=== PATIENT | male | born 1955 | race American Indian/Alaskan Native ===

== ENCOUNTER 2016-11-29 16:45 | Emergency (ER) | payer BC ==
[2016-11-29 17:00] VITALS: BP 123/93
--- NOTE | 2016-11-29 17:20 | Event Note ---
Date: 11/29/16 Patient sent to the ER for evaluation of chest pressure. Patient complains of a sensation of chest fullness in his chest cavity since Tuesday. He denies vomiting, diaphoresis, shortness of breath. His EKG is morphologically abnormal with a left bundle branch block, patient is well dressed, sitting comfortable, in no acute distress, watching TV. His EKG does not meet STEMI criteria by Sgarbarossa criteria. Routine chest pain workup to commence Vital Signs 11/29/16 16:56 Temperature 97.7 F Pulse Rate 91 H Respiratory 18 Rate Blood Pressure 123/93 O2 Sat by Pulse 97 Oximetry
[2016-11-29 19:13] LABS: Anion Gap 17 mmol/L; Blood Urea Nitrogen 14 mg/dL (9-20); Calcium 9.5 mg/dL (8.4-10.2); Carbon Dioxide 25 mmol/L (22-30); Chloride 98.8 mmol/L (98-107); Glucose 92 mg/dL (75-100); Potassium 4.2 mmol/L (3.6-5.0); Sodium 137 mmol/L (137-145)
[2016-11-29 19:14] LABS: Basophils % (Auto) 0.4 % (0.0-1.8); Eosinophils % (Auto) 1.5 % (0.0-4.3); Hematocrit 44.4 % (35.5-45.6); Hemoglobin 14.7 gm/dl (11.8-15.2); Mean Corpuscular HGB Conc 33 % (32-34); Mean Corpuscular Hemoglobin 27 pg (28-32); Mean Corpuscular Volume 82 fl (84-94); Platelet Count 216 K/mm3 (140-440); Red Blood Count 5.39 M/mm3 (3.65-5.03); Red Cell Distribution Width 13.7 % (13.2-15.2); White Blood Count 7.1 K/mm3 (4.5-11.0)
--- NOTE | 2016-11-30 07:24 | ED Elopement Review ---
ED Pt Elopement review - Results review Lab results: Laboratory Tests 11/29/16 11/29/16 11/29/16 18:10 18:10 18:10 WBC 7.1 RBC 5.39 H Hgb 14.7 Hct 44.4 MCV 82 L MCH 27 L MCHC 33 RDW 13.7 Plt Count 216 Lymph % (Auto) 39.[address] [facility] % (Auto) 9.1 H Eos % (Auto) 1.5 Baso % (Auto) 0.4 Lymph # 2.8 [facility] # 0.6 Eos # 0.1 Baso # 0.0 Seg Neutrophils % 49.1 Seg Neutrophils # 3.5 Sodium 137 Potassium 4.2 Chloride 98.8 Carbon Dioxide 25 Anion Gap 17 BUN 14 Creatinine 0.8 Estimated GFR > 60 BUN/Creatinine Ratio 17.50 Glucose 92 Calcium 9.5 Troponin T < 0.010 < 0.010 - Call Back decision Pt Call Back Decision: No action required
== END 2016-11-29 22:36 | disposition left against medical advice (07) ==
LOC: ED 16:45
DX: R07.9 Chest pain, unspecified (principal); Z53.21 Procedure and treatment not carried out due to patient leaving prior to being seen by health care provider
CPT/HCPCS: 36415; 80048; 84484; 85025; 93005; 93010

== ENCOUNTER 2016-11-30 10:47 | Emergency (ER) | payer BC ==
[2016-11-30 11:46] VITALS: BP 134/83
[2016-11-30 12:47] LABS: Creatine Kinase MB 4.6 ng/mL (0.0-4.0)
[2016-11-30 12:48] LABS: Creatine Kinase 268 units/L (55-170)
--- NOTE | 2016-11-30 13:37 | XRay Report ---
PA chest: There is a curvilinear area of scar or atelectasis in the right upper lobe with what appears to be a small tenting of the pleura attached to this finding. The chest otherwise however appear clear and unremarkable. The heart is normal in size but the aorta slightly tortuous. No prior study for comparison. Impression: Probable right upper lobe scar. Comparison with prior studies is recommended however if available. If not, suggest repeat chest in 3 months to reevaluate.
== END 2016-11-30 16:28 | disposition left against medical advice (07) ==
LOC: ED 10:47
DX: R07.89 Other chest pain (principal); Z53.21 Procedure and treatment not carried out due to patient leaving prior to being seen by health care provider
CPT/HCPCS: 36415; 71010; 82550; 82553; 84484